=== PATIENT | female | born 1975 | race Caucasian/White ===

== ENCOUNTER → 2023-07-31 06:36 | Day surgery (SDC) | payer OTHER, SELFPAY | LOC: GI 06:36 | PROVIDERS: ATTENDING PHYSICIAN Internal Medicine Gastroenterology | DX: R19.4 Change in bowel habit (principal); K64.8 Other hemorrhoids; R09.89 Other specified symptoms and signs involving the circulatory and respiratory systems; K44.9 Diaphragmatic hernia without obstruction or gangrene; K31.7 Polyp of stomach and duodenum; K31.89 Other diseases of stomach and duodenum; F45.8 Other somatoform disorders; D12.0 Benign neoplasm of cecum; D12.3 Benign neoplasm of transverse colon; D12.8 Benign neoplasm of rectum; K29.50 Unspecified chronic gastritis without bleeding | CPT/HCPCS: 45385; 45380; 43239; 88305; 88342 ==

== ENCOUNTER → 2023-08-05 09:48 | Outpatient (REF) | payer OTHER, SELFPAY | LOC: HWRAD 09:48 | PROVIDERS: ATTENDING PHYSICIAN Internal Medicine Gastroenterology; FAMILY PHYSICIAN Family Medicine | DX: R10.13 Epigastric pain (principal) | CPT/HCPCS: 76700 ==

== ENCOUNTER 2023-10-15 06:24 | Day surgery (SDC) | payer OTHER, SELFPAY ==
[2023-10-15] VITALS (7 sets, daily range): BP systolic 113–148; BP diastolic 69–81; BMI 30.4
[2023-10-15] MEDS: ZOFRAN 4 MG IV (11:57)
== END 2023-10-15 12:35 | disposition home or self-care (01) ==
LOC: GI 06:24
PROVIDERS: ATTENDING PHYSICIAN Internal Medicine Gastroenterology
DX: D12.8 Benign neoplasm of rectum (principal); K64.0 First degree hemorrhoids
CPT/HCPCS: 45349; 88305

== ENCOUNTER 2024-04-19 06:27 | Day surgery (SDC) | payer OTHER, SELFPAY ==
[2024-04-19 09:15] VITALS: BMI 29.9
[2024-04-19 09:16] VITALS: BP 129/86; BMI 29.9
[2024-04-19 10:12] VITALS: BP 109/73
[2024-04-19 10:15] VITALS: BP 107/71
[2024-04-19 10:30] VITALS: BP 121/72
[2024-04-19 10:45] VITALS: BP 124/82
== END 2024-04-19 11:00 | disposition home or self-care (01) ==
LOC: GI 06:27
PROVIDERS: ATTENDING PHYSICIAN Internal Medicine Gastroenterology
DX: Z09 Encounter for follow-up examination after completed treatment for conditions other than malignant neoplasm (principal); K64.9 Unspecified hemorrhoids; K62.89 Other specified diseases of anus and rectum; Z86.0101 Personal history of adenomatous and serrated colon polyps; Z98.890 Other specified postprocedural states
CPT/HCPCS: 45346; 88305

== ENCOUNTER → 2024-06-21 07:55 | Outpatient (REF) | payer OTHER, SELFPAY | LOC: WDC 07:55 | PROVIDERS: ATTENDING PHYSICIAN Obstetrics & Gynecology; FAMILY PHYSICIAN Family Medicine | DX: Z12.31 Encounter for screening mammogram for malignant neoplasm of breast (principal) | CPT/HCPCS: 77063; 77067 ==

== ENCOUNTER → 2024-07-04 09:38 | Outpatient (REF) | payer OTHER, SELFPAY | LOC: WDC 09:38 | PROVIDERS: ATTENDING PHYSICIAN Obstetrics & Gynecology; FAMILY PHYSICIAN Family Medicine | DX: R92.8 Other abnormal and inconclusive findings on diagnostic imaging of breast (principal) | CPT/HCPCS: 76642 ==

== ENCOUNTER → 2024-08-04 14:30 | Outpatient (REF) | payer OTHER, SELFPAY | LOC: RAD 14:30 | PROVIDERS: ATTENDING PHYSICIAN Family Medicine | DX: M54.16 Radiculopathy, lumbar region (principal) | CPT/HCPCS: 72110 ==

== ENCOUNTER → 2024-11-04 14:23 | Outpatient (REF) | payer OTHER, SELFPAY | LOC: RAD 14:23 | PROVIDERS: ATTENDING PHYSICIAN Family Medicine; FAMILY PHYSICIAN Family Medicine | DX: R10.9 Unspecified abdominal pain (principal) | CPT/HCPCS: 74177; Q9967 ==

== ENCOUNTER 2024-11-11 00:28 | Emergency (ER) | payer OTHER, SELFPAY ==
[2024-11-11 00:36] VITALS: BP 150/83
[2024-11-11 01:29] VITALS: BP 134/68
[2024-11-11 01:30] VITALS: BMI 25.2
--- NOTE | 2024-11-11 01:55 | ED.GENMED ---
History of Present Illness
<DO Rene Lyon Filed: 11/12/24 14:36>
General
Chief Complaint: Dizziness
Source: patient
Time Seen by Provider: 11/11/24 01:48
History of Present Illness
History of Present Illness:
49-year-old female presents to the emergency room complaining of dizziness. Patient states that she began feeling dizzy after dinner around 8 PM. If she remains perfectly still she feels okay but when she turns her head to the right she begins to
have a sense of movement. She then becomes nauseous. No headache. No focal weakness numbness. Patient has had episodes like this a couple previous times.
Phy Exam
<DO Rene Lyon Last Filed: 11/12/24 14:36>
Physical Exam
Physical Exam:
General: Awake, Alert, Oriented X3. No acute distress.
Vitals: unremarkable
Head: Atraumatic
Eyes: Pupils equal, EOMI,
Throat: Airway intact, no exudates
Neck: Trachea midline
Lungs: Clear and equal b/l
Heart: Regular rate, no murmurs
Abd: Soft, Nontender, No pulsatile mass
Neuro: Cranial nerves intact, muscle strength equal bilaterally, cerebellar exam normal
Skin: Warm, dry, no rash
Extremities: pulses equal b/l, no edema
Course
<DO Rene Lyon Last Filed: 11/12/24 14:36>
Orders/Labs/Results
Orders:
Orders
11/11/24 01:53
0.9% Sodium Chloride 500 ml [Nss] 500 ml IV BOLUS
Meclizine [Antivert] 25 mg PO NOW STA
Ondansetron Injectable [Zofran] 4 mg IV NOW STA
11/11/24 02:12
Basic Metabolic Panel Urgent
Complete Blood Count/With Diff Urgent
11/11/24 03:38
Diphenhydramine [Benadryl] 25 mg IV NOW STA
Metoclopramide [Reglan] 10 mg IV NOW STA
Abnormal Lab Results
11/11/24
02:12
MPV 11.1 H fL
(7.4-10.4)
Abs Immat Gran (auto) 0.1 H 10^3/uL
(0-0.05)
Absolute Neuts (auto) 7.5 H 10^3/uL
(1.4-6.5)
Absolute Lymphs (auto) 0.9 L 10^3/uL
(1.2-3.4)
Immature Gran % 0.6 H %
(0-0.5)
Neutrophils % 84.7 H %
(42.2-75.2)
Lymphocytes % 10.6 L %
(20.5-51.1)
Potassium 3.4 L mmol/L
(3.5-5.1)
Carbon Dioxide 18 L mmol/L
(22-30)
Creatinine 0.5 L mg/dL
(0.6-1.0)
Glucose 144 H mg/dl
(70-99)
11/11/24 02:12
11/11/24 02:12
Vital Signs
Initial and Last Documented VS:
Initial Vital Signs
Temp Pulse Resp BP Pulse Ox
97.8 F 74 24 150/83 99
11/11/24 00:36 11/11/24 00:36 11/11/24 00:36 11/11/24 00:36 11/11/24 00:36
Last Documented Vital Signs
Temp Pulse Resp BP Pulse Ox
97.8 F 74 24 131/78 97
11/11/24 00:36 11/11/24 00:36 11/11/24 00:36 11/11/24 05:00 11/11/24 05:00
<Frank Mcknight, DO - Last Filed: 11/11/24 05:22>
Orders/Labs/Results
Orders:
Orders
11/11/24 01:53
0.9% Sodium Chloride 500 ml [Nss] 500 ml IV BOLUS
Meclizine [Antivert] 25 mg PO NOW STA
Ondansetron Injectable [Zofran] 4 mg IV NOW STA
11/11/24 02:12
Basic Metabolic Panel Urgent
Complete Blood Count/With Diff Urgent
11/11/24 03:38
Diphenhydramine [Benadryl] 25 mg IV NOW STA
Metoclopramide [Reglan] 10 mg IV NOW STA
Abnormal Lab Results
11/11/24
02:12
MPV 11.1 H fL
(7.4-10.4)
Abs Immat Gran (auto) 0.1 H 10^3/uL
(0-0.05)
Absolute Neuts (auto) 7.5 H 10^3/uL
(1.4-6.5)
Absolute Lymphs (auto) 0.9 L 10^3/uL
(1.2-3.4)
Immature Gran % 0.6 H %
(0-0.5)
Neutrophils % 84.7 H %
(42.2-75.2)
Lymphocytes % 10.6 L %
(20.5-51.1)
Potassium 3.4 L mmol/L
(3.5-5.1)
Carbon Dioxide 18 L mmol/L
(22-30)
Creatinine 0.5 L mg/dL
(0.6-1.0)
Glucose 144 H mg/dl
(70-99)
11/11/24 02:12
11/11/24 02:12
Vital Signs
Initial and Last Documented VS:
Initial Vital Signs
Temp Pulse Resp BP Pulse Ox
97.8 F 74 24 150/83 99
11/11/24 00:36 11/11/24 00:36 11/11/24 00:36 11/11/24 00:36 11/11/24 00:36
Last Documented Vital Signs
Temp Pulse Resp BP Pulse Ox
97.8 F 74 24 131/78 97
11/11/24 00:36 11/11/24 00:36 11/11/24 00:36 11/11/24 05:00 11/11/24 05:00
<Antolin Hairston DO - Last Filed: 11/12/24 14:36>
*Pulse Oximetry
SaO2: 97
Oxygen Mode of Delivery: Room air
Patient hypoxic: no
*Critical Care Note
Total Time (30-74mins, 75-104mins- exclusive of procedures): Not Applicable
<Frank Mcknight, DO - Last Filed: 11/11/24 05:22>
Update Note
Update Note:
03 40 patient received in signout reassessed and feels that the nausea was a little bit better but still feels dizzy. Attempted Martha maneuver without success. Patient is ambulatory and gait normal. Trial Reglan and Benadryl for nausea and
reassess
0500 patient does feel better on reassessment nausea much improved was able to stand and walk without difficulty will refer her to vestibular outpatient PT and provide meclizine as needed for symptom control as well as antiemetics. Suspect BP PV
ED Attending Note
<Antolin Hairston DO - Last Filed: 11/12/24 14:36>
-
Portions of this chart may have been created with voice recognition software.� Occasional wrong word or��sound alike� substitutions may have occurred due to the inherent limitations of voice recognition software.
Discharge Plan
Departure
Patient Disposition: Home (Routine Discharge)
Date of Disposition: 11/11/24
Time of Disposition: 05:18
Patient with high blood pressure during this ER visit?: No
Discharge Problem:
Vertigo
Instructions: Vertigo (a Type of Dizziness) (DC)
Prescriptions:
New
meclizine 25 mg tablet
25 mg PO TID PRN (Reason: dizziness) Qty: 14 0RF
ondansetron HCl 4 mg tablet
4 mg PO TID PRN (Reason: nausea and vomiting) 3 Days Qty: 14 0RF
No Action
albuterol sulfate 90 mcg/actuation Hfa Aerosol Inhaler
2 puff INHALATION Q4H
Patient Comments:
pt states she hasn't used it 'in years'
epinephrine 0.3 mg/0.3 mL Auto-Injector
0.3 mg IM Q4H PRN (Reason: allergies)
ibuprofen 600 mg Tablet
600 mg PO Q6HPRN PRN (Reason: mild cramps) Qty: 0 0RF
acetaminophen 325 mg tablet
650 mg PO Q6H
Centrum Women
1 pill PO DAILY
Vitamin B-12
1 pill PO DAILY
Fleet Enema 19-7 gram/118 mL Enema
[address]PERPROTOCOL
Patient Comments:
2 fleet enemas prior to procedure
Referrals:
Isaiah Menendez MD [Family Provider, [facility]]
Activity Restrictions/Additional Instructions:
Please see the next 3 to 5 days and so call and follow-up with vestibular rehabilitation. Return immediately for intractable dizziness, difficulty walking, worsening symptoms, tractable vomiting or any other concerns. Please rest and drink plenty
of fluids.
Interventions
Interventions:
*Risk Screen - Suicide Last Done: 11/11/24 00:36
*General Assessment Last Done: 11/11/24 01:30
*Neglect/Abuse Screening Last Done: 11/11/24 01:30
*ED- Fall Risk Assessment Last Done: 11/11/24 01:30
*ED COVID-19 Vaccine History Last Done: 11/11/24 01:30
*Nursing Disposition Last Done: 11/11/24 05:31
ED- Neurological Assessment Last Done: 11/11/24 01:30
ED- Cardiac Assessment Last Done: 11/11/24 01:30
ED Swallowing Screen Last Done: 11/11/24 02:00
Discharge Date and Time
Discharge Date/Time: 11/11/24 05:31
Print Language: DOMINICAN
[2024-11-11] MEDS: ZOFRAN 4 MG IV (02:16)
[2024-11-11] MEDS: ANTIVERT 25 MG PO (02:16)
[2024-11-11] MEDS: NSS 500 IV (02:16)
[2024-11-11 02:48] LABS: % Basophils 0.2 % (0-2); % Eosinophils 0.1 % (0-6); % Immature Granulocytes 0.6 % (0-0.5); % Lymphocytes 10.6 % (20.5-51.1); % Monocytes 3.8 % (1.7-9.3); % Neutrophils 84.7 % (42.2-75.2); Absolute Immature Granulocytes 0.1 10^3/uL (0-0.05); Absolute Lymphocytes 0.9 10^3/uL (1.2-3.4); Absolute Monocytes 0.3 10^3/uL (0.1-0.6); Absolute Neutrophils 7.5 10^3/uL (1.4-6.5); Hemoglobin 13.6 g/dL (12.0-16.0); Mean Corp Hgb Conc. 36.8 g/dL (33.0-37.0); Mean Corpuscular Hgb 30.8 pg (27.0-31.0); Mean Corpuscular Volume 83.7 fL (81.0-99.0); Mean Platelet Volume 11.1 fL (7.4-10.4); Nucleated Red Blood Cells % 0 %; Platelet Count 251 10^3/uL (130-400); Red Blood Cell Count 4.42 10^6/uL (4.20-5.40); Red Cell Dist. Width 12.3 % (11.5-14.5); White Blood Cell Count 8.8 10^3/uL (4.8-10.8)
[2024-11-11 03:11] LABS: Blood Urea Nitrogen 7 mg/dl (7-17); Calcium 9.9 mg/dl (8.4-10.2); Carbon Dioxide 18 mmol/L (22-30); Chloride 105 mmol/L (98-107); Estimated Creatinine Clearance 84 ml/min; Glucose 144 mg/dl (70-99); Potassium 3.4 mmol/L (3.5-5.1); Sodium 136 mmol/L (135-145); eGFR > 60.00
[2024-11-11 03:23] VITALS: BP 127/68
[2024-11-11] MEDS: REGLAN 10 MG IV (03:59)
[2024-11-11] MEDS: BENADRYL 25 MG IV (04:00)
[2024-11-11 05:00] VITALS: BP 131/78
== END 2024-11-11 05:31 | disposition home or self-care (01) ==
LOC: EMR 00:28
PROVIDERS: EMERGENCY PHYSICIAN Emergency Medicine; FAMILY PHYSICIAN Family Medicine
DX: R42 Dizziness and giddiness (principal)
CPT/HCPCS: 99283; 96374; 96375; 96361; 80048; 85025

== ENCOUNTER 2024-12-07 09:30 | Outpatient (RCR) | payer OTHER, SELFPAY | END 2024-12-07 23:59 | disposition home or self-care (01) | LOC: RPT 09:30 | PROVIDERS: ATTENDING PHYSICIAN Emergency Medicine; FAMILY PHYSICIAN Family Medicine | DX: R42 Dizziness and giddiness (principal); Z73.6 Limitation of activities due to disability | CPT/HCPCS: 97112; 97162 ==

== ENCOUNTER → 2025-02-07 09:17 | Outpatient (REF) | payer OTHER, SELFPAY | LOC: WDC 09:17 | PROVIDERS: ATTENDING PHYSICIAN Obstetrics & Gynecology; FAMILY PHYSICIAN Family Medicine | DX: R92.8 Other abnormal and inconclusive findings on diagnostic imaging of breast (principal) | CPT/HCPCS: 76642 ==

== ENCOUNTER → 2025-02-08 13:58 | Outpatient (REF) | payer OTHER, SELFPAY | LOC: RAD 13:58 | PROVIDERS: ATTENDING PHYSICIAN Nurse Practitioner Family; FAMILY PHYSICIAN Family Medicine | DX: R10.2 Pelvic and perineal pain (principal) | CPT/HCPCS: 76830; 76856 ==

== ENCOUNTER → 2025-05-03 14:27 | Day surgery (SDC) | payer OTHER, SELFPAY | END | disposition home or self-care (01) | LOC: GI 14:27 | PROVIDERS: ATTENDING PHYSICIAN Internal Medicine Gastroenterology | DX: Z12.11 Encounter for screening for malignant neoplasm of colon (principal); K57.30 Diverticulosis of large intestine without perforation or abscess without bleeding; K62.1 Rectal polyp; K64.8 Other hemorrhoids; Z86.0100 Personal history of colon polyps, unspecified | CPT/HCPCS: 45380; 88305 ==